=== PATIENT | female | born 1960 | race Caucasian/White ===

== ENCOUNTER 2017-05-23 11:20 | Day surgery (SDC) | payer OTHER ==
[2017-05-23 12:49] VITALS: PULSE 67
[2017-05-23] MEDS ORDERED: LR 1,000 ML IV ONE (13:02)
--- NOTE | 2017-05-23 13:06 | PDANEPAE ---
ANE History of Present Illness parathyroidectomy ANE Past Medical History - Cardiovascular History Hx Hypertension: Yes Hx Arrhythmias: No Hx Chest Pain: No Hx Coronary Artery / Peripheral Vascular Disease: No Hx CHF / Valvular Disease: No Hx Palpitations: No - Pulmonary History Hx COPD: No Hx Asthma/Reactive Airway Disease: No Hx Recent Upper Respiratory Infection: No Hx Oxygen in Use at Home: No Hx Sleep Apnea: Yes Sleep Apnea Screening Result - Last Documented: Positive - Neurologic History Hx Cerebrovascular Accident: No Hx Seizures: No Hx Dementia: No - Endocrine History Hx Diabetes: No - Renal History Hx Renal Disorders: No - Liver History Hx Hepatic Disorders: No - Neurological & Psychiatric Hx Hx Neurological and Psychiatric Disorders: No - Cancer History Hx Cancer: No - Congenital Disorder History Hx Congenital Disorders: No - GI History Hx Gastrointestinal Disorders: No Gastrointestinal History Comment: GERD- uses Nexium - Other Health History Other Health History: Uterine Fibroids 2006. Anemia 2006 - Surgical History Prior Surgeries: Lasik 05/18. Hysterectomy 2006 ANE Review of Systems Review of systems is: negative (morbid obesity) Review of Systems: - Exercise capacity METS (RN): 4 METS ANE Patient History - Allergies Allergies/Adverse Reactions: No Known Allergies Allergy (Unverified 05/21/17 10:07) - Home Medications Home medications: home medication list seen and reviewed Home Medications: Chlorthalidone DAILY AT 6AM 05/21/17 [Last Taken Unknown] Lexapro DAILY AT 6AM 05/21/17 [Last Taken Unknown] Losartan Potassium DAILY AT 6AM 05/21/17 [Last Taken Unknown] Nexium DAILY AT 6AM 05/21/17 [Last Taken Unknown] - NPO status NPO Status: no food or drink >8 hours NPO Since - Liquids (Date): 05/23/17 NPO Since - Solids (Date): 05/22/17 - Anes Hx Anes Hx: no prior problems - Smoking Hx Smoking Status: Never smoked - Family Anes Hx Family Anes Hx: none Family Hx Anesthesia Complications: NA ANE Labs/Vital Signs - Labs Result Diagrams: 05/23/17 12:50 - Vital Signs Blood Pressure: 163/98 Heart Rate: 67 Respiratory Rate: 16 O2 Sat (%): 95 Height: 160.02 cm Weight: 151.953 kg ANE Physical Exam - Airway Neck exam: FROM Mallampati Score: Class 2 Mouth exam: normal dental/mouth exam - Pulmonary Pulmonary: no respiratory distress - Cardiovascular Cardiovascular: regular rate and rhythym - ASA Status ASA Status: III ANE Anesthesia Plan Anesthesia Plan: general endotracheal anesthesia
[2017-05-23] MEDS ORDERED: MIDAZOLAM 2 MG/2 ML VIAL IVP ONE (13:07)
[2017-05-23 13:13] LABS: ANION GAP 11 mEq/L (8-16); CALCIUM 10.8 mg/dL (8.5-10.4); CARBON DIOXIDE 25 mEq/l (22-31); CHLORIDE 104 mEq/L (97-110); CREATININE 0.8 mg/dL (0.6-1.0); GLOMERULAR FILTRATION RATE > 60; GLUCOSE 86 mg/dL (70-100); SODIUM 140 mEq/L (134-144)
[2017-05-23 13:24] LABS: PTH INTACT NO MINERALS 182.5 pg/ml (10.8-79.4)
--- NOTE | 2017-05-23 13:43 | PDHPUP ---
History & Physical Update H&P update statement: This history and physical update is based on an assessment of the patient which was completed after admission or registration (within 24 hours), but prior to the surgery/procedure. H&P update: H&P reviewed & patient examined, no change in patient's condition since H&P completed
--- NOTE | 2017-05-23 13:44 | POSTOPPROG ---
Post Op Note Date of Operation: 05/24/17 Surgeon: Aaron Garcia Anesthesiologist: David Maya Anesthesia: GET(General Endotracheal) Pre-op Diagnosis: Primary Hyperparathyroidism Post-op Diagnosis: Same Procedure: Parathyroidectomy Findings: large right lower pole subcapsular parathyroid, low lying upper pole gland Inf/Abcess present in the surg proc area at time of surgery?: No Depth: Superfical (Skin SQ) Complications: no immediate Specimen(s): right upper and lower neck glands
[2017-05-23] MEDS ORDERED: BUPIVACAINE/EPI 0.5% 30 ML SDV ONE (13:54)
[2017-05-23] MEDS ORDERED: DEXAMETHASONE 4 MG/ML VIAL ONE (14:02)
[2017-05-23] MEDS ORDERED: fentaNYL 250 MCG/5 ML INJ ONE (14:02)
[2017-05-23] MEDS ORDERED: PROPOFOL 200 MG/20 ML VIAL ONE (14:02)
[2017-05-23] MEDS ORDERED: ONDANSETRON 4 MG/2 ML VIAL ONE (14:02)
[2017-05-23] MEDS ORDERED: LIDOCAINE 2% 100 MG/5 ML SYR ONE (14:02)
[2017-05-23] MEDS ORDERED: ROCURONIUM 50 MG/5 ML VIAL ONE (14:02)
[2017-05-23] MEDS ORDERED: SUGAMMADEX SODIUM 200 MG/2 ML VIAL IVP ONE (14:02)
[2017-05-23] MEDS ORDERED: KETOROLAC 30 MG/1 ML SDV ONE (14:10)
[2017-05-23] MEDS ORDERED: SUCCINYLCHOLINE CHLORIDE 200 MG/10 ML SYR IVP ONE (14:15)
[2017-05-23] MEDS ORDERED: PROPOFOL/EMULSION 500 MG/50 ML BOTTLE IV ONE ×2 (14:42→15:24)
[2017-05-23] MEDS ORDERED: OXYCODONE/APAP 5/325 TAB PO PRN (16:15)
[2017-05-23] MEDS ORDERED: PROMETHAZINE HCL 25 MG/ML INJ IVP PRN (16:15)
[2017-05-23] MEDS ORDERED: fentaNYL 100 MCG/2 ML INJ IVP PRN (16:15)
[2017-05-23] MEDS ORDERED: ALBUTEROL 3 ML DEYVIAL IH PRN (16:15)
[2017-05-23] MEDS ORDERED: NALOXONE HCL 0.4 MG/ML INJ IVP PRN ×2 (16:15)
[2017-05-23] MEDS ORDERED: ENALAPRILAT DIHYDRATE 1.25 MG/ML VIAL IVP PRN (16:15)
[2017-05-23 19:02] VITALS: TEMP 97.2
--- NOTE | 2017-05-24 00:57 | GOP ---
[f rep st] OPERATIVE REPORT DATE OF OPERATION: 05/23/2017 SURGEON: Aaron Garcia MD ANESTHESIA: General. PREOPERATIVE DIAGNOSIS: Primary hyperparathyroidism. POSTOPERATIVE DIAGNOSIS: Primary hyperparathyroidism. PROCEDURE PERFORMED: Parathyroidectomy. FINDINGS: Right lower neck clinical adenoma. INDICATIONS: 57-year-old female with symptomatic primary hyperparathyroidism. Preoperative localization studies suggest a possible right lower neck adenoma. She is undergoing surgical excision at this time. Risks and benefits were explained of bleeding, infection, persistent and recurrent hyperparathyroidism, hypoparathyroidism, recurrent laryngeal nerve injury, as well as need for additional surgical intervention. All questions were answered. She desires to proceed. DESCRIPTION OF PROCEDURE: General anesthesia was induced. The neck was infiltrated with 0.5% Marcaine with epinephrine. A low collar incision was created. The platysma and strap muscles were . The right arik neck cavity was initially unroofed. The thyroid lobe was mildly enlarged without nodularity. The right arik neck cavity was initially undertaken. A prominent parathyroid gland was initially noted at the lower pole of the thyroid lobe posteriorly. This appeared to be a very long upper pole gland, coursing to the lower part of the neck. Further exploration did not initially show the true lower pole adenoma but rather diffuse nodular thymic and lower neck fatty tissue. The contralateral neck was subsequently explored. Normal upper and lower pole glands were easily identified. The lower pole glands sitting just inferior and posterior to the lowermost aspect of the thyroid lobe. This gland was small in caliber. The upper pole gland was easily identified sitting in its normal anatomic location just superior to the recurrent laryngeal nerve/ inferior thyroid artery and junction. This was also completely small and normal in caliber. Hemoclips were placed on both these for future identification purposes. Attention was turned back to the right neck. The upper pole gland was dissected back and removed in its entirety. I further explored the left lower neck and sitting in subcapsular location to the prominent thyroid was the true inferior pole parathyroid clinical adenoma as seen on ultrasonography just superior to where the upper pole parathyroid gland had been sitting. This gland was easily dissected back to its feeding vasculature and divided with electrocautery. At this point, PTH specimens were obtained. Preoperative levels were 182. Five, 10, and 15-minute levels were 23, 22 and 17. Having seen a much greater than 50% drop and return to complete normalcy, no further exploration was undertaken. Hemostasis was assured. The neck was closed in layers with absorbables by Dermabond. The patient was taken to recovery awake uneventfully. /[id number]/MODL MTDD
[2017-05-28 08:36] VITALS: BP 163/98; RESP 16; O2SAT 95
== END 2017-05-23 19:28 | disposition home or self-care (01) ==
LOC: FSGY 11:20
PROVIDERS: ATTEND Surgery
PROC: 0GBR0ZZ Excision of Parathyroid Gland, Open Approach (ICD-10-PCS; principal; 2017-05-23 13:00)
DX: E21.0 Primary hyperparathyroidism (principal); E66.9 Obesity, unspecified; G47.33 Obstructive sleep apnea (adult) (pediatric); Z68.43 Body mass index [BMI] 50.0-59.9, adult
CPT/HCPCS: J0330; J1100; J1885; J2001; J2250; J2405; J2704; J3010

== ENCOUNTER 2018-06-21 08:15 | Emergency (ER) | payer BC ==
[2018-06-21] MEDS ORDERED: HYDROmorphONE/DILAUDID 2 MG/ML INJ IVP ONE (08:49)
--- NOTE | 2018-06-21 08:49 | EDPHY ---
H & P Time Seen by Provider: 06/21/18 08:29 HPI/ROS: CHIEF COMPLAINT: Back pain with leg numbness HISTORY OF PRESENT ILLNESS: 58-year-old woman with history of breast cancer and recent gastric bypass surgery presents with worsening sciatica associated with right leg numbness. She has had intermittent problems with sciatica in the past but never this bad. Over the last week she has pain in her right hip which radiates down her right leg to the mid calf. It is associated with numbness and tingling below her knee in the ankle and foot. She is able to walk but feels unstable because she has difficulty feeling her lower leg and foot. No bladder or bowel symptoms. Better sitting up and worse lying down. She tried Aleve Tylenol tramadol and oxycodone but did not sleep at all last night. REVIEW OF SYSTEMS: Eye: no change in vision ENT: no sore throat Cardiac: no chest pain or syncope Pulmonary: no cough or SOB Abdomen: no vomiting, diarrhea, abdominal pain Musculoskeletal: HPI Skin: Some redness and inflammation on her right inner upper arm where her port access is, recently treated with IV and oral antibiotics for a superficial infection there. Neuro: HPI Constitutional: no fever : no urinary symptoms A comprehensive 10 point review of systems is otherwise negative aside from elements mentioned in the history of present illness. PAST MEDICAL HISTORY: Gastric bypass in March 2018, breast cancer with last chemotherapy 1/2 weeks ago, her oncologist is Dr. Majano at [facility]. Recent right arm port infection. 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 Eyes: No scleral icterus. ENT, Mouth: Normal mucous membranes. Respiratory: Normal respiratory effort, breath sounds equal, lungs are clear to auscultation. Cardiovascular: Regular rate and rhythm. Gastrointestinal: Abdomen is soft and non tender. Neurological: Patient is alert and ambulatory back to the room. Her patellar reflexes 0-1 on the right and 2+ on the left, toes downgoing bilaterally. She does have decreased sensation to light touch in the right leg below the knee. No clonus in either leg or foot. Skin: She does has some redness and scaling over the right arm port site but no lymphangitis or actual discharge. Musculoskeletal: No peripheral edema. Psychiatric: Not agitated. Emergency Department course/MDM: Dilaudid 1 mg IV, MRI discussed and consented for back pain with numbness and decreased reflexes and history of cancer. 1130: MRI per [place] shows right L4-5 herniated disk, otherwise negative. No cauda equina. 1214: MRI results discussed. Potential risk benefit side effect alternatives of steroids discussed and consented. She will follow up on Friday or Friday with her oncologist, can get referral to agronomy specialist if needed through her oncologist. Oxycodone 17 and Medrol Dosepak. Smoking Status: Never smoked Constitutional: Initial Vital Signs Temperature (C) 36.9 C 06/21/18 08:20 Heart Rate 87 06/21/18 08:20 Respiratory Rate 17 06/21/18 08:20 Blood Pressure 197/108 H 06/21/18 08:20 O2 Sat (%) 97 06/21/18 08:20 O2 Delivery Mode Room Air Allergies/Adverse Reactions: lisinopril Allergy (Verified 06/21/18 08:17) Home Medications: Medication Instructions Recorded Lexapro DAILY AT 6AM 05/21/17 Calcium Carbonate [Tums 500MG (*)] 1,000 mg PO TID 14 Days tabchew 05/23/17 Baclofen 06/21/18 Clindamycin 06/21/18 Oxycodone HCl 06/21/18 methylPREDNISolone [Medrol Dose 1 each PO AD #1 ea 06/21/18 Pan] oxyCODONE HCL [Oxycodone HCl] 1 - 2 tab PO Q6 PRN #17 tablet 06/21/18 traMADol 06/21/18 Medical Decision Making - Diagnostics Imaging Results: Imaging Impressions Lumbar Spine MRI 06/21/18 08:49 Impression: 1. Multilevel lumbar degenerative disk disease, as detailed by level above. There is moderate right neural foraminal narrowing at L4-L5 secondary to a focal foraminal disk protrusion abutting the undersurface of the exiting right L4 nerve root. Less severe right foraminal disease is present at L1-L2 and L5- S1. 2. No dominant central disk herniation or acquired central canal stenosis. Results called to Dr. Kyle Camejo at 11:30 a.m. Imaging: Discussed imaging studies w/ care partner Radiologist Differential Diagnosis: Differential considered including but not limited to DVT, sciatica, cauda equina syndrome, acute herniated disc, back and neurologic symptoms from metastatic prostate cancer. - Data Points Laboratory Results: Laboratory Results 06/21/18 08:55 06/21/18 08:55 06/21/18 06/21/18 06/21/18 08:59 08:55 08:55 WBC 7.96 10^3/uL 10^3/uL (3.80-9.50) RBC 5.02 10^6/uL 10^6/uL (4.18-5.33) Hgb 13.5 g/dL g/dL (12.6-16.3) POC Hgb 13.9 gm/dL gm/dL (12.6-16.3) Hct 41.1 % % (38.0-47.0) POC Hct 41 % % (38-47) MCV 81.9 fL fL (81.5-99.8) MCH 26.9 pg L pg (27.9-34.1) MCHC 32.8 g/dL g/dL (32.4-36.7) RDW 16.6 % H % (11.5-15.2) Plt Count 236 10^3/uL 10^3/uL (150-400) MPV 9.0 fL fL (8.7-11.7) Neut % (Auto) Not Reported Lymph % (Auto) Not Reported [place] % (Auto) Not Reported Eos % (Auto) Not Reported Baso % (Auto) Not Reported Nucleat RBC Rel Count Not Reported Absolute Neuts (auto) Not Reported Absolute Lymphs (auto) Not Reported Absolute Monos (auto) Not Reported Absolute Eos (auto) Not Reported Absolute Basos (auto) Not Reported Absolute Nucleated RBC Not Reported Immature Gran % Not Reported Seg Neutrophils % 70.0 % % Band Neutrophils % 7.0 % % Lymphocytes % 19.0 % % Monocytes % 3.0 % % Eosinophils % 1.0 % % Basophils % 0.0 % % Metamyelocytes % 0.0 % % Myelocytes % 0.0 % % Promyelocytes % 0.0 % % Blast Cells % 0.0 % % Immature Gran # Not Reported Absolute Seg Neuts 5.57 10^3/uL 10^3/uL (1.70-6.50) Absolute Band Neuts 0.56 10^3/uL 10^3/uL (0.00-0.70) Absolute Lymphocytes 1.51 10^3/uL 10^3/uL (1.00-3.00) Absolute Monocytes 0.24 10^3/uL L 10^3/uL (0.30-0.80) Absolute Eosinophils 0.08 10^3/uL 10^3/uL (0.03-0.40) Absolute Basophils 0.00 10^3/uL L 10^3/uL (0.02-0.10) Absolute Metamyelocyte 0.00 10^3/mL 10^3/mL (0.00-0.00) Absolute Myelocytes 0.00 10^3/mL 10^3/mL (0.00-0.00) Absolute Promyelocytes 0.00 10^3/uL 10^3/uL (0.00-0.00) Absolute Plasma Cells 0.00 10^3/uL 10^3/uL (0.00-0.00) Nucleated RBCs 0 /100 WBC /100 WBC (0-0) Atypical Lymphocytes 1+ H Absolute Blast Cells 0.00 10^3/uL 10^3/uL (0.00-0.00) Plasma Cells % 0.0 % % Platelet Estimate ADEQUATE (ADEQ) Polychromasia 1+ H POC Sodium 141 mEq/L mEq/L (135-145) Sodium 138 mEq/L mEq/L (135-145) POC Potassium 3.7 mEq/L mEq/L (3.3-5.0) Potassium 4.0 mEq/L mEq/L (3.5-5.2) POC Chloride 105 mEq/L mEq/L (97-110) Chloride 107 mEq/L mEq/L (97-110) Carbon Dioxide 20 mEq/l L mEq/l (22-31) Anion Gap 11 mEq/L mEq/L (6-14) POC BUN 14 mg/dL mg/dL (7-23) BUN 15 mg/dL mg/dL (7-23) Creatinine 0.6 mg/dL mg/dL (0.6-1.0) POC Creatinine 0.6 mg/dL mg/dL (0.6-1.0) Estimated GFR > 60 Glucose 106 mg/dL H mg/dL (70-100) POC Glucose 109 mg/dL H mg/dL (70-100) Calcium 9.5 mg/dL mg/dL (8.5-10.4) Medications Given: Discontinued Medications Hydromorphone HCl (Dilaudid) 1 mg IVP EDNOW ONE Stop: 06/21/18 08:50 Last Admin: 06/21/18 08:59 Dose: 1 mg Lorazepam (Ativan Injection) 1 mg IVP EDNOW ONE Stop: 06/21/18 09:39 Last Admin: 06/21/18 09:41 Dose: 1 mg Point of Care Test Results: Chemistry 06/21/18 08:59 POC Sodium 141 mEq/L mEq/L (135-145) POC Potassium 3.7 mEq/L mEq/L (3.3-5.0) POC Chloride 105 mEq/L mEq/L (97-110) POC BUN 14 mg/dL mg/dL (7-23) POC Creatinine 0.6 mg/dL mg/dL (0.6-1.0) POC Glucose 109 mg/dL H mg/dL (70-100) ISTAT H&H 06/21/18 08:59 POC Hgb 13.9 gm/dL gm/dL (12.6-16.3) POC Hct 41 % % (38-47) Departure - Departure Disposition: Home, Routine, Self-Care Clinical Impression: Lumbar radiculopathy, acute Condition: Good Instructions: Lumbar Radiculopathy (ED) Referrals: Pepe Augustin, [Primary Care Provider] - As per Instructions Prescriptions: methylPREDNISolone [Medrol Dose Pan] 1 each PO AD #1 ea oxyCODONE HCL [Oxycodone HCl] 1 - 2 tab PO Q6 PRN #17 tablet PRN Reason: pain
[2018-06-21 09:04] LABS: PLATELET COUNT 236 10^3/uL (150-400)
[2018-06-21] MEDS ORDERED: LORazepam 2 MG/ML INJ IVP ONE (09:38)
[2018-06-21 12:28] VITALS: BP 170/90
== END 2018-06-21 12:33 | disposition home or self-care (01) ==
DX: M54.16 Radiculopathy, lumbar region (principal)
CPT/HCPCS: 82435-PO; 82565-PO; 82947-PO; 84132-PO; 84295-PO; 84520-PO; 85014-ER; 96374; J1170; J2060